=== PATIENT | male | born 1940 | race Caucasian/White ===

== ENCOUNTER 2016-08-29 05:42 | Inpatient (IN) | payer OTHER ==
[2016-06-02 05:40] VITALS: BMI 27.4
[2016-08-29] MEDS ORDERED: CEFAZOLIN 1 GM VIAL ONE (05:54)
[2016-08-29] MEDS: VANCOMYCIN 1,000 MG VIAL INSTILL ONE ×2 (06:09→08:06)
[2016-08-29] MEDS ORDERED: REMIFENTANIL HCL 2,000 MCG VIAL IV ONE (06:26)
[2016-08-29] MEDS ORDERED: BUPIVACAINE 0.5% 30 ML VIAL ONE (06:55)
[2016-08-29] MEDS ORDERED: LIDOCAINE 1% 30 ML VIAL (PRESERVATIVE FREE) ONE ×2 (06:55→07:07)
[2016-08-29] MEDS ORDERED: TRIAMCINOLONE 40 MG/ML VIAL ONE (06:55)
[2016-08-29] MEDS ORDERED: LIDOCAINE 1% 5 ML (METHYLPARABEN FREE) ONE (06:56)
[2016-08-29] MEDS ORDERED: ONDANSETRON HCL 4 MG ODT TAB PO PRN (07:00)
[2016-08-29] MEDS ORDERED: hydrALAZINE 20 MG/ML VIAL IV PRN (07:00)
[2016-08-29] MEDS ORDERED: MEPERIDINE 25 MG/ML TUBEX IV PRN (07:00)
[2016-08-29] MEDS ORDERED: FENTANYL 100 MCG/2 ML VIAL IV PRN ×2 (07:00)
[2016-08-29] MEDS ORDERED: PROMETHAZINE 25 MG/ML VIAL IV PRN ×2 (07:00)
[2016-08-29] MEDS ORDERED: HYDROmorphone 1 MG INJECTION IV PRN ×2 (07:00)
[2016-08-29] MEDS ORDERED: ONDANSETRON HCL 4 MG/2 ML VIAL IV PRN (07:00)
[2016-08-29] MEDS ORDERED: LABETALOL 20 MG/4 ML SYRINGE IV PRN (07:00)
--- NOTE | 2016-08-29 07:01 | SC.ANESPOS ---
[id number], Hemodynamically Stable, Pain Control Adequate Phase I & II Recovery Complete: Yes Apparent Anesthesia Complication: No : N - Vital Signs Blood Pressure: 158/84 Pulse: 60 Resp Rate: 18 O2 Sat: 97 Temp: 98.4 F
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
[2016-08-29] MEDS ORDERED: DIPHENHYDRAMINE 50 MG/ML VIAL IV PRN (10:37)
[2016-08-29] MEDS ORDERED: SODIUM CHLORIDE 0.9% 3 ML FLUSH FLUSH PRN (10:37)
[2016-08-29] MEDS ORDERED: OXYCODONE HCL 5 MG TABLET PO PRN (10:37)
[2016-08-29] MEDS ORDERED: DIPHENHYDRAMINE 25 MG CAP PO PRN (10:37)
[2016-08-29] MEDS ORDERED: MAGNESIUM HYDROXIDE 30 ML BOTTLE PO PRN (10:37)
[2016-08-29] MEDS ORDERED: Aluminum;Magnesium;Simethicone 30 ML UDC PO PRN (10:37)
[2016-08-29] MEDS ORDERED: MORPHINE 2 MG/ML INJECTION IV PRN (10:37)
[2016-08-29] MEDS ORDERED: Pharmacy Discontinue All Previous Acetaminophen Orders SCH (11:00)
[2016-08-29] MEDS ORDERED: NALOXONE 0.4 MG/ML AMPULE IV SCH (11:00)
[2016-08-29] MEDS: CYANOCOBALAMIN (Vitamin B-12) 500 MCG TABLET PO SCH (12:40)
[2016-08-29] MEDS: VITAMINS, MULTIPLE CAP PO SCH (12:40)
[2016-08-29] MEDS: Cefazolin 2gm/50 ml D5W 2 GM/50 ML RTU IV SCH ×2 (12:41→20:39)
[2016-08-29] MEDS: ONDANSETRON HCL 4 MG/2 ML VIAL IV SCH ×3 (12:41→23:09)
[2016-08-29] MEDS: OXYCODONE (OxyCONTIN) 10 MG TAB PO SCH ×2 (12:41→20:39)
[2016-08-29] MEDS: CALCIUM CARBONATE + VITAMIN D 500 MG TAB PO SCH ×2 (12:41→17:12)
[2016-08-29] MEDS: ACETAMINOPHEN 325 MG/TAB TABLET PO SCH ×3 (12:41→23:08)
[2016-08-29] MEDS ORDERED: Vaccine Screening Complete SCH (13:00)
[2016-08-29] MEDS ORDERED: LIDOCAINE 100 MG PFS IV ONE (15:57)
[2016-08-29] MEDS ORDERED: SUCCINYLCHOLINE 20 MG/1 ML INJ 10 ML MDV IV ONE (15:57)
[2016-08-29] MEDS ORDERED: NEOSTIGMINE 1 MG/1 ML (1:1000) INJ 10 ML MDV IM ONE (15:57)
[2016-08-29] MEDS ORDERED: FENTANYL 250 MCG/5 ML VIAL IV ONE (15:57)
[2016-08-29] MEDS ORDERED: ROCURONIUM 50 MG/5 ML VIAL IV ONE (15:57)
[2016-08-29] MEDS ORDERED: ONDANSETRON HCL 4 MG/2 ML VIAL IV ONE (15:57)
[2016-08-29] MEDS ORDERED: GLYCOPYRROLATE 1 MG VIAL IM ONE (15:57)
[2016-08-29] MEDS ORDERED: PHENYLEPHRINE 10 MG/ML VIAL IC ONE (15:57)
[2016-08-29] MEDS ORDERED: PROPOFOL 200 MG/20 ML VIAL IV ONE (15:57)
[2016-08-29] MEDS: SODIUM CHLORIDE 0.9% 3 ML FLUSH FLUSH SCH (17:12)
--- NOTE | 2016-08-29 17:29 | HIMOP ---
DATE OF PROCEDURE: 08/29/2016 PREOPERATIVE DIAGNOSES: 1. Recurrent disk herniation, L4-L5, with spinal stenosis. 2. Loosening of implants, status post fall at L4-L5. POSTOPERATIVE DIAGNOSES: 1. Recurrent disk herniation, L4-L5, with spinal stenosis. 2. Loosening of implants, status post fall at L4-L5. PROCEDURE PERFORMED: 1. Revision, laminectomy and diskectomy, L4-L5. 2. Revision, fixation, L4-L5. SURGEON: Aamir Kenney MD ESCALATOR OPERATOR: Bolivar Coreas PA-C. ANESTHESIA: General endotracheal anesthesia. IV FLUIDS: Crystalloids. ESTIMATED BLOOD LOSS: 200 mL. SPECIMENS: None. COMPLICATIONS: None. IMPLANTS: Medtronic pedicle screw Solera 8.5 x 55 were placed at the L5 level bilaterally. The previously used jt was reused again. BRIEF HISTORY: Mook Tanner is a 75-year-old male who almost 3 months ago underwent lumbar decompression, fusion, and instrumentation, L3-L4 and L4-L5. The patient subsequent to that had good relief of his pain in his lower extremities. After surgery, the patient fell and had loosening of the implants at L5 bilaterally with loosening of the pedicle screws as well as migration of the interbody cage at L4-L5. The patient had a repeat CT of myelogram which confirmed the findings as well as stenosis at L4-L5 due to recurrent disk herniation. The patient had complaints of left lower extremity radicular pain. Based on patient's complaints, a decision was made for revision of laminectomy and discectomy at L4-L5 as well as revision of fixation at L5. The patient understood that the risks involved in surgery include but are not limited to risk of infection, damage to the nerve, blood vessel, need for further surgery, continued pain, DVT, pulmonary embolism, stroke, and even . He volunteered an informed consent. The patient was seen on the day of surgery in the preop holding area. Surgical site was marked. The patient was then wheeled back into the operating room. DESCRIPTION OF THE PROCEDURE: The patient was intubated while on the hospital bed. Proper timeout was performed. A 2 g of IV Ancef was given. He was then placed prone on the radiolucent table. The surgical site was prepped and draped. We started with the previous incision. Skin and deep fascia was incised. The paraspinal muscles were elevated. Previously placed implants were exposed both medially and laterally. We then proceeded with the revision of laminectomy and discectomy at L4-L5. The scar tissue was carefully elevated from the dura. We performed additional laminectomy using Kerrison rongeurs at L4 - L5. Exposure of the dura showed evidence of the posterior migration of the cage as well as large disk fragment that was behind the cage. The previously placed cage was removed using the instrumentation by [employer]. We then proceeded with the revision laminectomy and diskectomy and complete diskectomy at L4-L5 was performed. We then sized the interbody space in progressive fashion and the previously placed cage was size 12 and interbody height. We sized the interbody space at size 14 and placed a size 14 interbody PEEK cage that was filled with locally harvested autograft. We then proceeded with the revision and fixation at L4-L5. The previously placed set screws were removed. The jt was taken out. The screws at L5 were loose bilaterally. These screws were removed and were replaced with 8.5 x 55 screws. The screws were stimulated with EMG and both screws stimulated adequately. This was followed by reapplication of the jt with set screws. Final AP and lateral x-rays were obtained. The wound was copiously irrigated with normal saline and was closed in layers. The patient tolerated the procedure very well and was taken to the recovery room in a stable condition. DISPOSITION: The patient would be weightbearing as tolerated and would start physical therapy. The patient would be discharged home on Monday. [id number]
[2016-08-29] MEDS: ZOLPIDEM TARTRATE 5 MG TAB PO SCH (20:39)
[2016-08-29] MEDS: DOCUSATE-SENNA CONCENTRATE TAB PO SCH (20:40)
[2016-08-29] MEDS: GABAPENTIN 300 MG CAP PO SCH (20:40)
[2016-08-29] MEDS ORDERED: Non-Formulary Medication ITEM (Gabapentin [Neurontin] 600 MG) PO SCH (21:00)
[2016-08-29] MEDS ORDERED: OXYCODONE (OxyCONTIN) 10 MG TAB PO SCH (21:00)
[2016-08-29] MEDS ORDERED: CLONAZEPAM 2 MG PO SCH (21:00)
[2016-08-29] MEDS ORDERED: ACETAMINOPHEN 325 MG/TAB TABLET PO ONE (23:11)
[2016-08-30] MEDS: Cefazolin 2gm/50 ml D5W 2 GM/50 ML RTU IV SCH (05:12)
[2016-08-30] MEDS: OXYCODONE (OxyCONTIN) 10 MG TAB PO SCH ×3 (05:12→19:26)
[2016-08-30] MEDS: SODIUM CHLORIDE 0.9% 3 ML FLUSH FLUSH SCH ×2 (05:12→17:37)
[2016-08-30] MEDS: ONDANSETRON HCL 4 MG/2 ML VIAL IV SCH (05:13)
[2016-08-30] MEDS: ACETAMINOPHEN 325 MG/TAB TABLET PO SCH ×3 (05:14→17:37)
[2016-08-30 06:45] LABS: MPV 9.9 fL (7.4-10.4)
--- NOTE | 2016-08-30 06:51 | PCM.ORTHBL ---
- Subjective Post Op Day: 1 Daily Assessment - Patient: Reports: No new complaints, Awake Alert Oriented x4 , Still having pain (in lower back), Tolerating Regular Diet, Voiding without difficulty, Afebrile, Ambulating with Physical Therapist, Other (Denies chest pain. NO numbness/tingling.). Denies: Difficulty Swallowing, Shortness of breath, Nausea, Vomiting - Objective / Physical Exam Vital Signs: Temperature: 98.3 F (08/30/16 06:00) HR: 80 (08/30/16 06:00)RR: 20 (08/30/16 06: 00) BP: 141/76 (08/30/16 06:00)Pulse Ox: 95 (08/30/16 06:00) General: Alert, Oriented x3, Cooperative, No acute distress, Well appearing Musculoskeletal / Extremities: 2 plus Dorsalis Pedis Pulse, Dressing Clean/Dry/ Intact Neurological: Positive Sensation First Dorsal Web Space, Sensation to light touch intact, Extensor Hallicus Longus Intact, Flexor Hallicus Longus Intact, Dorsiflexion Intact, Plantarflexion Intact - Assessment and Plan (1) Lumbar stenosis with neurogenic claudication Chronic M48.06 - SPINAL STENOSIS, LUMBAR REGION Present on Admission: Yes Plan: POD#1 Continue pain management PT/WBAT D/c planning, plan for home
[2016-08-30 07:12] LABS: BLOOD UREA NITROGEN 11 MG/DL (9-20); CALCIUM 9.9 MG/DL (8.4-10.2); CALCULATED OSMOLALITY 264 MOs/Kg (270-290); CHLORIDE 103 mEq/L (98-107); GLUCOSE 117 MG/DL (70-99); SODIUM LEVEL 137 mEq/L (137-146)
[2016-08-30] MEDS: TOLTERODINE 4 MG LA CAP PO SCH (07:41)
[2016-08-30] MEDS: RANITIDINE 150 MG TAB PO SCH (07:42)
[2016-08-30] MEDS: ALLOPURINOL 100 MG TAB PO SCH (07:42)
[2016-08-30] MEDS ORDERED: OXYBUTYNIN CHLORIDE 10 MG PO SCH (09:00)
[2016-08-30] MEDS ORDERED: CYANOCOBALAMIN 10000 MCG PO SCH (09:00)
[2016-08-30] MEDS ORDERED: ONDANSETRON HCL 4 MG/2 ML VIAL IV PRN (10:38)
[2016-08-30] MEDS: VITAMINS, MULTIPLE CAP PO SCH (11:48)
[2016-08-30] MEDS: CALCIUM CARBONATE + VITAMIN D 500 MG TAB PO SCH ×2 (11:48→17:36)
[2016-08-30] MEDS: CYANOCOBALAMIN (Vitamin B-12) 500 MCG TABLET PO SCH (11:48)
--- NOTE | 2016-08-30 19:20 | PCM.DCS92 ---
- Final/Secondary Discharge Diagnosis (1) Lumbar stenosis with neurogenic claudication Chronic M48.06 - SPINAL STENOSIS, LUMBAR REGION Present on Admission: Yes Plan/Goal/Comment: Ambulating well with PT. Continue pain management. no lifting greater than 5 pounds. Avoid flexion/rotation of the spine. OK to shower with Ioban dressing in place. Do not remove dressing. Call with any dressing concerns. No NSAIDs for 3 months post-op. Stable for discharge home. To follow-up in office in 2 weeks or earlier as needed Discharge Disposition: Home Discharge Condition: Stable Cognitive Discharge Status: Unimpaired Fuctional Discharge Status: Post-op Weakness Physician Follow up/Referrals: Aamir Kenney MD [Staff Physician] - Two Weeks Home Medications/ New Prescriptions: New Oxycodone Immediate Release [Oxycodone Immediate Release (OxyIR)] 5 mg PO Q4H PRN #40 tab PRN Reason: Pain Senna Concentrate [Senokot] 2 tab PO QHS #60 tablet No Action Allopurinol [Zyloprim] 100 mg PO DAILY Zolpidem Tartrate [Ambien] 5 mg PO HS Gabapentin [Neurontin] 600 mg PO HS Clonazepam [Klonopin] 2 mg PO HS Cyanocobalamin (Vitamin B-12) [Vitamin B12] 10,000 mcg PO DAILY Ranitidine HCl [Zantac] 150 mg PO DAILY Sennosides/Docusate Sodium [Stool Softener Tablet] 1 each PO BID Oxybutynin Chloride [Ditropan Xl] 10 mg PO DAILY Oxycodone Immediate Release [Oxycodone Immediate Release (OxyIR)] 5 mg PO HS Ibuprofen [Motrin Ib] 400 mg PO QID PRN PRN Reason: Pain Diet at Discharge: As Tolerated, Regular Activity: Limited (no lifting greater than 5 pounds. Avoid flexion/rotation of the spine.), No Heavy Lifting, No Driving Call Office For: Worsening Symptoms, Wound is Draining Pus, Fever over 101 F, Fever over 100.5, Wound is Painful, Wound is Red, Weight Gain (see below), Pain Uncontrolled By Meds, Other (See Details) Discontinue use of:: Alcohol, All Illegal Substances, All Types of Tobacco - DC Summary Notes Hospital Course Note:: Discharge summary on patient named DAMIÁN DAS admitted to [facility] on 08/29/16 by Aamir Kenney MD. Date of discharge is [08/31/16]. Afebrile. Hospital course and surgery uneventful. Ambulating with PT. Continue pain management. no lifting greater than 5 pounds. Avoid flexion/ rotation of the spine. OK to shower with Ioban dressing in place. Do not remove dressing. Call with any dressing concerns. No NSAIDs for 3 months post- op. Stable for discharge home. To follow-up in office in 2 weeks or earlier as needed. Wound Care Surgical Site: Yes Site Description (if applicable): lower back May Shower Starting:: upon d/c with Ioban dressing on Dressing/Site Care (if applicable): Do not remove dressing, call with any concerns Remove Transdermal Scopalamine patch if present: YES Medication Instructions: Take Stool Softener, Rx on Chart Continue Ice Packs/Ice Machine to Operative Area: Yes Activity as Tolerated: No (no lifting greater than 5 pounds. Avoid flexion/ rotation of spine) Weight Bearing: Full Current Dressing: Ioban Dressing Care: Keep Wound Clean & Dry, Shower with Tegaderm Dsg (Ioban), No Tub Baths, Do Not Change Dressing - Consults/Home Health Outpatient Consults: None - Physical Exam Vital Signs: Initial Vitals Temperature 98.4 F 08/29/16 06:09 Pulse Rate 60 08/29/16 06:09 Respiratory Rate 18 08/29/16 06:09 Blood Pressure 158/84 08/29/16 06:09 Pulse Oxygen Saturation 97 08/29/16 06:09 Constitutional: No apparent distress, Alert, Well appearing Oriented to: Time, Person, Place - HEENT Head: Normal - Musculoskeletal Extremities: Pedal Pulse, Other (dressing intact without leakage). negative: Calf Tenderness - Neurologic Memory Impaired: Normal Motor Function: Normal Cranial Nerve: Normal Cerebellar: Normal Mood Description: Normal Thought: Coherent Perception: Normal
[2016-08-30] MEDS: ZOLPIDEM TARTRATE 5 MG TAB PO SCH (21:35)
[2016-08-30] MEDS: GABAPENTIN 300 MG CAP PO SCH (21:36)
[2016-08-30] MEDS: DOCUSATE-SENNA CONCENTRATE TAB PO SCH (21:36)
[2016-08-31] MEDS: ACETAMINOPHEN 325 MG/TAB TABLET PO SCH ×3 (02:22→14:04)
[2016-08-31] MEDS: SODIUM CHLORIDE 0.9% 3 ML FLUSH FLUSH SCH (04:55)
[2016-08-31] MEDS: OXYCODONE (OxyCONTIN) 10 MG TAB PO SCH ×2 (04:55→13:58)
--- NOTE | 2016-08-31 06:18 | PCM.ORTHBL ---
- Subjective Post Op Day: 2 Daily Assessment - Patient: Reports: No new complaints, Awake Alert Oriented x4 , Still having pain, Pain is less, Tolerating Regular Diet, Voiding without difficulty, Afebrile, Ambulating with Physical Therapist. Denies: Shortness of breath, Nausea, Vomiting - Objective / Physical Exam Vital Signs: Temperature: 98.3 F (08/30/16 21:39) HR: 78 (08/30/16 21:39)RR: 20 (08/30/16 21: 39) BP: 158/62 (08/30/16 21:39)Pulse Ox: 95 (08/30/16 21:39) General: Alert, Oriented x3, Cooperative, No acute distress, Well appearing Musculoskeletal / Extremities: 2 plus Dorsalis Pedis Pulse, Other (Dressing dry and intact. No leakage from dressing.). negative: Tenderness (no calf tenderness) Neurological: Positive Sensation First Dorsal Web Space, Sensation to light touch intact, Extensor Hallicus Longus Intact, Flexor Hallicus Longus Intact, Dorsiflexion Intact, Plantarflexion Intact - Assessment and Plan (1) Lumbar stenosis with neurogenic claudication Chronic M48.06 - SPINAL STENOSIS, LUMBAR REGION Present on Admission: Yes Plan: POD#2 s/p revision of L4-L5 fusion Continue pain management PT/WBAT; No lifting greater than 5 pounds. Avoid flexion/rotation of the spine D/C plan for home today. He plans to stay at his daughter's house over the next couple of weeks.
[2016-08-31 06:47] LABS: MPV 10.4 fL (7.4-10.4)
[2016-08-31 06:57] LABS: BLOOD UREA NITROGEN 18 MG/DL (9-20); CALCIUM 9.3 MG/DL (8.4-10.2); CALCULATED OSMOLALITY 268 MOs/Kg (270-290); CHLORIDE 104 mEq/L (98-107); GLUCOSE 98 mg/dL (70-99); SODIUM LEVEL 138 mEq/L (137-146)
[2016-08-31] MEDS: RANITIDINE 150 MG TAB PO SCH (08:33)
[2016-08-31] MEDS: TOLTERODINE 4 MG LA CAP PO SCH (08:33)
[2016-08-31] MEDS: ALLOPURINOL 100 MG TAB PO SCH (08:33)
[2016-08-31] MEDS: CALCIUM CARBONATE + VITAMIN D 500 MG TAB PO SCH (13:58)
[2016-08-31] MEDS: VITAMINS, MULTIPLE CAP PO SCH (13:59)
[2016-08-31] MEDS: CYANOCOBALAMIN (Vitamin B-12) 500 MCG TABLET PO SCH (14:00)
[2016-08-31 14:25] VITALS: BP 165/79; PULSE 71; TEMP 98.5
== END 2016-08-31 15:28 | disposition home or self-care (01) | DRG 519 ==
LOC: SDC 05:42 → MPS3 11:59 → OBSVTOIN 11:59 → INTOOBSV 12:00
PROVIDERS: ADMIT Orthopaedic Surgery; ATTEND Orthopaedic Surgery
PROC: 0SB20ZZ Excision of Lumbar Vertebral Disc, Open Approach (ICD-10-PCS; 2016-08-29)
PROC: 4A11X4G Monitoring of Peripheral Nervous Electrical Activity, Intraoperative, External Approach (ICD-10-PCS; 2016-08-29)
PROC: 0SW004Z Revision of Internal Fixation Device in Lumbar Vertebral Joint, Open Approach (ICD-10-PCS; principal; 2016-08-29 07:15)
DX: M48.06 Spinal stenosis, lumbar region (principal); T84.038A Mechanical loosening of other internal prosthetic joint, initial encounter; T84.226A Displacement of internal fixation device of vertebrae, initial encounter; M43.16 Spondylolisthesis, lumbar region; M54.16 Radiculopathy, lumbar region; Z79.899 Other long term (current) drug therapy; M51.26 Other intervertebral disc displacement, lumbar region; Y83.1 Surgical operation with implant of artificial internal device as the cause of abnormal reaction of the patient, or of later complication, without mention of misadventure at the time of the procedure; W19.XXXA Unspecified fall, initial encounter
CPT/HCPCS: 80048; 85027; 86850; 86900; 86901; 95870; 95937; 95938; 97162; 97165; G0237; G0378; J0330; J0690; J2001; J2370; J2405; J2710; J3010; J3301; J3370; J3490